=== PATIENT | female | born 1965 ===

== ENCOUNTER 2023-03-09 08:44 | Outpatient (REF) | payer MEDICARE, MEDICAID, SELFPAY ==
--- NOTE | ~2023-03-09 | XR_ITS ---
EXAMINATION: XR ANKLE, RIGHT CLINICAL INFORMATION: Pain COMPARISON: None available. TECHNIQUE: AP, lateral, and mortise views of the right ankle. FINDINGS: Bone alignment is normal. No fracture or dislocation. Normal ankle mortise. Calcaneal spurs. Soft tissues are normal in XR/XR ankle RT min 3V IMPRESSION: Calcaneal spurs.
== END 2023-03-09 08:45 | disposition home or self-care (01) ==
LOC: HO.HOSX 08:44
PROVIDERS: Visit Provider Physician Assistant
DX: M25.571 Pain in right ankle and joints of right foot (principal); M21.371 Foot drop, right foot
CPT/HCPCS: 73610; 99202

== ENCOUNTER 2023-06-27 10:00 | Outpatient (RCR) | payer MEDICARE, MEDICAID, SELFPAY ==
--- NOTE | 2023-05-23 08:18 | MHC.PT.EP ---
[facility] [place] Office [place] Office [place] Office [address] Narcisa Frazier [address] [phone] F: [phone] F: [phone] F: [phone] F: [phone] Physical Therapy Plan of Care Date of Evaluation: Date of Surgery: Diagnosis: This is a 58 yo female presenting to skilled PT with a script for foot drop, R foot. Assessment: This is a 58 yo female presenting to skilled PT with a script for foot drop, R foot. This patient saw [facility] ortho at the end of February. [facility] (states that she was never given a script for this and does not have a follow up appointment). Per ortho note she was referred to physical therapy to work on ROM and the maximum amount of strength training as possible. The patient reports ongoing pain for 3 years now after she jumped down the last few steps of a set of stairs (did not fall, landed on her feet). Following the incident her R entire leg was painful, turned black and blue and was swollen. She went to [facility] and was admitted for 2-3 days but is unsure of the POC. She states that she may not have had O2 in the limb and this is what caused the symptoms. She did not end of having surgery but also reports that they wanted to have her undergo some type of intervention. Her pain today is at the medial ankle but this effects the entire limb and low back as well. Pain is described as achy, sharp and weak. Her pain effects her life in regards to ADLs, transfers and sleeping. She reports that due to foot drop she has had multiple falls, is unable to drive and is limited in how long she can stand (step into the tub), sit or ambulate safely. Assessment reveals pain that ranges from 6/10. Patient demos minimal ROM and strength of R foot. She is also limited in the R hip and knee as well. They are TTP at throughout the RLE. She is limited in walking, standing, sitting as well as transfers and ADLs. I called ortho and asked them to reach out to [facility] again as this AFO will most likely be the most beneficial for her vs PT. POC for our sessions will be ROM and strengthening as well as pain management for the R hip and knee as she has little to no strength or ROM of the R foot. Based on functional limitations, impaired QOL and pain tolerance patient is a good candidate for skilled PT 2x/wk for 4wks. Frequency and Duration: The patient will be seen 2x/wk for 4wks Short Term Goals: (in 2 weeks) I in HEP Demo good understanding of safety with gait and transfers Intermediate Goals: (in 4 weeks) Improve pain to no more than a 2/10 at the worst Improve overall QOL subjectively by at least 50% Improve hip strength of BLE by at least 1 MMT grade Treatment Plan: Modalities to reduce pain, spasms and effusion. Manual therapy to restore motion and function. Therapeutic exercise to improve strength and flexibility. Neuromuscular re-education for posture and balance. Therapeutic activities to return to functional activities of daily living. Electronically signed by: Alix De La Torre PT Please sign and return to therapist. Thank you for your referral.
--- NOTE | 2023-07-27 07:58 | MHC.PT.DC ---
[facility] [place] Office [place] Office [place] Office [address] Narcisa Frazier [address] [phone] F: [phone] F: [phone] F: [phone] F: [phone] Physical Therapy Discharge Report Diagnosis: This is a 58 yo female presenting to skilled PT with a script for foot drop, R foot. Date of Surgery: Date of Evaluation: 05/21/23 Date of Discharge: 07/27/23 Treatments to Date: 7 Cancellations to Date: 0 No Shows to Date: 0 Discharge Status: Achieved Goals Improved Function Independent with HEP Discharge Summary: Patient came to 7 visits of PT. She has acquired and AFO which has helped with her gait and balance and has a good HEP which has helped with her ROM. At this time we have plateaued in progress due to lack of ability to improve ankle strength. She is I in her program, has met her goals and is ready for DC at this time. Educated her to call our office in the future if she would like to review HEP once again. Chart was DC'd after 30 days Electronically signed by: Alix De La Torre PT Please sign and return to therapist. Thank you for your referral.
== END 2023-07-27 07:58 | disposition home or self-care (01) ==
LOC: HO.PTCHIC 10:00
PROVIDERS: PCP Physician Assistant; Visit Provider Physician Assistant
DX: M21.371 Foot drop, right foot (principal)
CPT/HCPCS: 97110; 97162